=== PATIENT | female | born 1970 | race African-American/Black ===

== ENCOUNTER 2018-02-18 13:17 | Emergency (ER) | payer BC ==
[2018-02-18 13:29] VITALS: BP 109/66
--- NOTE | 2018-02-18 14:31 | RADIOLOGY REPORT (SQ) ---
EXAM DESCRIPTION: WRIST RIGHT 3 VIEWS COMPLETED DATE/TIME: 02/18/2018 2:07 pm REASON FOR STUDY: wrist pain COMPARISON: None. NUMBER OF VIEWS: Three views. TECHNIQUE: AP, lateral, and oblique radiographic images acquired of the right wrist. LIMITATIONS: None. FINDINGS: MINERALIZATION: Normal. BONES: Old fracture deformity base of 5th metacarpal. SOFT TISSUES: No soft tissue swelling. No foreign body. OTHER: No other significant finding. IMPRESSION: Old fracture deformity 5th metacarpal. Otherwise, normal right wrist. TECHNICAL DOCUMENTATION: JOB ID: [id number] [id number] [employer]- All Rights Reserved Reading location - IP/workstation name: [email or web address]
--- NOTE | 2018-02-18 15:12 | ER Document Report ---
ED Hand/Wrist Injury - General Chief Complaint: Wrist Pain Stated Complaint: RIGHT WRIST PAIN Time Seen by Provider: 02/18/18 13:39 Mode of Arrival: Ambulatory Information source: Patient Notes: Patient presents with complaint of right wrist pain for several weeks. Patient unsure if she had an injury. 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 TRAVEL OUTSIDE OF THE [place] IN LAST 30 DAYS: No - Related Data Allergies/Adverse Reactions: No Known Allergies Allergy (Unverified 05/04/14 11:53) Past Medical History - General Information source: Patient - Social History Smoking Status: Current Every Day Smoker Chew tobacco use (# tins/day): No Frequency of alcohol use: None Drug Abuse: None Family History: Reviewed & Not Pertinent Patient has suicidal ideation: No Patient has homicidal ideation: No Pulmonary Medical History: Reports: Hx Pneumonia Renal/ Medical History: Denies: Hx Peritoneal Dialysis Review of Systems - Review of Systems Constitutional: No symptoms reported EENT: No symptoms reported Cardiovascular: No symptoms reported Respiratory: No symptoms reported Gastrointestinal: No symptoms reported Genitourinary: No symptoms reported Female Genitourinary: No symptoms reported Musculoskeletal: See HPI Skin: No symptoms reported Hematologic/Lymphatic: No symptoms reported Neurological/Psychological: No symptoms reported Physical Exam - Vital signs Vitals: Temp Pulse Resp BP Pulse Ox 98.4 F 76 16 109/66 100 02/18/18 13:26 02/18/18 13:26 02/18/18 13:26 02/18/18 13:26 02/18/18 13:26 - Notes Notes: PHYSICAL EXAMINATION: GENERAL: Well-appearing, well-nourished and in no acute distress. HEAD: Atraumatic, normocephalic. EYES: Pupils equal round and reactive to light, extraocular movements intact, conjunctiva are normal. ENT: Nares patent, oropharynx clear without exudates. Moist mucous membranes. NECK: Normal range of motion, supple without lymphadenopathy LUNGS: Breath sounds clear to auscultation bilaterally and equal. No wheezes rales or rhonchi. HEART: Regular rate and rhythm without murmurs Musculoskeletal: Normal range of motion, no pitting or edema. No cyanosis. Snuffbox tenderness to right wrist. Cap refill less than 3 seconds, motor and sensation normal distal to injury. NEUROLOGICAL: Cranial nerves grossly intact. Normal speech, normal gait. Normal sensory, motor exams PSYCH: Normal mood, normal affect. SKIN: Warm, Dry, normal turgor, no rashes or lesions noted. Course - Re-evaluation Re-evalutation: Patient's x-rays are negative for any acute fractures or dislocations. There is a an old fracture noted to the fifth digit, patient reports that she was aware of that. Patient does have snuffbox tenderness so I will place the patient in a thumb spica splint and have patient follow-up with Orth O, patient will have a repeat x-ray done in 7-10 days. Patient understands the plan of care and is agreeable to same. - Vital Signs Vital signs: Temp Pulse Resp BP Pulse Ox 98.4 F 76 16 109/66 100 02/18/18 13:26 02/18/18 13:26 02/18/18 13:26 02/18/18 13:26 02/18/18 13:26 Procedures - Immobilization right wrist Pre-Proc Neuro Vasc Exam: Normal Immobilizer type: Thumb spica Performed by: PCT Post-Proc Neuro Vasc Exam: Normal Alignment checked and good: Yes Discharge - Discharge Clinical Impression: Wrist sprain Qualifiers: Encounter type: initial encounter Laterality: right Qualified Code(s): S63.501A - Unspecified sprain of right wrist, initial encounter Additional Instructions: Sprain Your injury is a sprain. A sprain results from stretching or tearing of the ligaments, usually from a twisting injury. The ligaments will require time and protection in order to heal properly. Many sprains are quite disabling and should be taken seriously. The usual initial treatment of sprains is cold packs, elevation, and rest of the injured area. Your physician has assessed the seriousness of your ligament injury, and has outlined a treatment plan. Understand that this treatment may change, depending on how you progress. If a re-examination was recommended, it is important that you follow up as instructed. Call the doctor any time if there is severe pain, numbness, or loss of function in the injured area. Please wear the splint as directed for support. Please take ibuprofen 600 mg every 6 hours for the pain and inflammation. Your x-ray today does not show any acute fracture in the wrist. I would like you to follow-up with orthopedics due to the location of your pain. Occasionally there is a fracture of the scaphoid bone that can be missed on initial x-ray. I would like you to have an x-ray done again in 7-10 days. Forms: Return to Work Referrals: MECHE LUZ, DO [ACTIVE STAFF] - Follow up as needed
== END 2018-02-18 15:34 | disposition home or self-care (01) ==
LOC: ER 13:17
PROC: 2W3CX1Z Immobilization of Right Lower Arm using Splint (ICD-10-PCS; principal; 2018-02-18)
DX: S63.501A Unspecified sprain of right wrist, initial encounter (principal); X58.XXXA Exposure to other specified factors, initial encounter; F17.200 Nicotine dependence, unspecified, uncomplicated
CPT/HCPCS: 99283; L3908

== ENCOUNTER 2020-08-28 09:23 | Emergency (ER) | payer BC, OTHER ==
[2020-08-28 09:28] VITALS: BP 141/73
--- NOTE | 2020-08-28 10:54 | RADIOLOGY REPORT (SQ) ---
EXAM DESCRIPTION: ANKLE LEFT COMPLETE IMAGES COMPLETED DATE/TIME: 08/28/2020 10:42 am REASON FOR STUDY: left ankle injury COMPARISON: None. NUMBER OF VIEWS: Three views. TECHNIQUE: AP, lateral, and oblique radiographic images acquired of the left ankle. LIMITATIONS: None. FINDINGS: MINERALIZATION: Normal. BONES: No acute fracture or dislocation. Small plantar and dorsal calcaneal spurs JOINTS: No effusions. SOFT TISSUES: No soft tissue swelling. No foreign body. OTHER: No other significant finding. IMPRESSION: No acute fracture or malalignment TECHNICAL DOCUMENTATION: JOB ID: [id number] [employer] All Rights Reserved Reading location - IP/workstation name: [email or web address]
--- NOTE | 2020-08-28 11:03 | ER Document Report ---
ED Extremity Problem, Lower - General Chief Complaint: left ankle pain Stated Complaint: LEFT ANKLE PAIN Time Seen by Provider: 08/28/20 09:47 Primary Care Provider: [facility] [Provider Group] - Follow up as needed MECHE LUZ DO [ACTIVE STAFF] - Follow up as needed TRAVEL OUTSIDE OF THE [place] IN LAST 30 DAYS: No - HPI Notes: Patient is a 50-year-old female with no medical problems who presents with left ankle pain that began 1 week ago. Patient states she tripped and twisted her ankle. 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 She denies any other injuries or complaints. She denies chest pain, shortness of breath, vomiting, and fever. She has been taking ibuprofen for pain relief which has been helping. - Related Data Allergies/Adverse Reactions: acetaminophen [From Tylenol-Codeine] Allergy (Verified 08/28/20 10:07) codeine [From Tylenol-Codeine] Allergy (Verified 08/28/20 10:07) Past Medical History - General Information source: Patient - Social History Smoking Status: Current Every Day Smoker Frequency of alcohol use: None Family History: Reviewed & Not Pertinent Pulmonary Medical History: Reports: Hx Pneumonia Renal/ Medical History: Denies: Hx Peritoneal Dialysis Review of Systems - Review of Systems Constitutional: No symptoms reported EENT: No symptoms reported Cardiovascular: No symptoms reported Respiratory: No symptoms reported Gastrointestinal: No symptoms reported Genitourinary: No symptoms reported Female Genitourinary: No symptoms reported Musculoskeletal: See HPI Skin: No symptoms reported Hematologic/Lymphatic: No symptoms reported Neurological/Psychological: No symptoms reported Physical Exam - Vital signs Vitals: Temp Pulse Resp BP Pulse Ox 98.0 F 77 16 141/73 H 100 08/28/20 09:27 08/28/20 09:27 08/28/20 09:27 08/28/20 09:27 08/28/20 09:27 - Notes Notes: PHYSICAL EXAMINATION: GENERAL: Well-appearing, well-nourished and in no acute distress. HEAD: Atraumatic, normocephalic. EYES: sclera anicteric, conjunctiva are normal. ENT: Moist mucous membranes. NECK: Normal range of motion LUNGS: Normal work of breathing HEART: 2+ radial pulses bilaterally EXTREMITIES: Left ankle minimally tender anteriorly with no visible swelling or erythema. Full range of motion of the left ankle with 2+ PT and DP pulses. No pitting or edema. No cyanosis. NEUROLOGICAL: No focal neurological deficits. Moves all extremities spontaneously and on command. PSYCH: Normal mood, normal affect. SKIN: Warm, Dry, normal turgor, no rashes or lesions noted. Course - Re-evaluation Re-evalutation: Patient is a 50-year-old female with no medical history presents with left ankle pain after twisting it a week ago. Vital signs are stable and within normal limits. On exam, left ankle minimally tender anteriorly with no visible swelling or erythema. Left ankle x-ray is negative and shows no acute fractures or other osseous abnormalities. Patient given a work note and orthopedic referral if her left ankle continues to bother her. Patient advised to continue to take ibuprofen as needed for pain relief. Return precautions and follow-up instructions given. Patient will be discharged home at this time. Patient understands and is in agreement with the plan. - Vital Signs Vital signs: Temp Pulse Resp BP Pulse Ox 98.0 F 77 16 141/73 H 100 08/28/20 09:27 08/28/20 09:27 08/28/20 09:27 08/28/20 09:27 08/28/20 09:27 - Laboratory Results Critical Laboratory Results Reviewed: No Critical Results - Radiology Results Radiology Results Interpreted: Ankle X-Ray 08/28/20 10:18 IMPRESSION: No acute fracture or malalignment Critical Radiology Results Reviewed: No Critical Results Discharge - Discharge Clinical Impression: Left ankle pain Qualifiers: Chronicity: acute Qualified Code(s): M25.572 - Pain in left ankle and joints of left foot Left ankle sprain Qualifiers: Encounter type: initial encounter Involved ligament of ankle: unspecified ligament Qualified Code(s): S93.402A - Sprain of unspecified ligament of left ankle, initial encounter Condition: Stable Disposition: HOME, SELF-CARE Additional Instructions: Your x-ray does not show any acute fracture. You have a sprained ankle. You should take ibuprofen 600 mg every 6 hours as needed for pain. Please return if you have worsening pain and swelling, fever greater than 101, you notice spreading redness from the area, or have any other symptoms that are concerning to you. Please follow-up with orthopedic surgery if your symptoms have not improved in the next 2-3 weeks. Forms: Return to Work Referrals: [facility] [Provider Group] - Follow up as needed MECHE LUZ DO [ACTIVE STAFF] - Follow up as needed
== END 2020-08-28 11:17 | disposition home or self-care (01) ==
LOC: ER 09:23
DX: S93.402A Sprain of unspecified ligament of left ankle, initial encounter (principal); M25.572 Pain in left ankle and joints of left foot; W19.XXXA Unspecified fall, initial encounter; Y93.K1 Activity, walking an animal; F17.200 Nicotine dependence, unspecified, uncomplicated; Z88.8 Allergy status to other drugs, medicaments and biological substances; Z88.6 Allergy status to analgesic agent; Z88.5 Allergy status to narcotic agent
CPT/HCPCS: 99283